=== PATIENT | male | born 1950 | race Caucasian/White ===

== ENCOUNTER 2020-05-26 03:14 | Emergency (ER) | payer MEDICARE, BC ==
[2020-05-26] MEDS ORDERED: Orphenadrine 100 MG Tab.ER PO STA (04:10)
--- NOTE | 2020-05-26 04:31 | EDM.PDOC ---
ED HPI GENERAL MEDICAL PROBLEM - General Chief Complaint: Back Pain or Injury Stated Complaint: FELL/LEFT SIDE & BACK Time Seen by Provider: 05/26/20 03:30 Source of Information: Reports: Patient History Limitations: Reports: No Limitations - History of Present Illness INITIAL COMMENTS - FREE TEXT/NARRATIVE: Mr. Sierra is a very pleasant 69-year-old gentleman who now presents the ED with lower left back pain. He states that he initially developed lower back pain before Thanksgiving, after cleaning out a dog area. He saw his PCP on 05/04/2020, where blood work was checked, and found to be normal. He was told to take Advil or Excedrin, but he was not given any prescriptions or recommendations for activity. His back pain persisted, then he tripped and nearly fell about 5 days ago, on 05/21/2020. This caused his lower back pain to get even worse. Ordinarily, his lower back pain is worse if he remains still and improves with men, however, over the past day or two it has gotten worse with movement, is what prompted him to come to the ED tonight. He states that on occasion he will have pain radiating down his anterior left thigh as far as his knee. No weakness to the left lower extremity. No incontinence of bowel or bladder. The patient states that he been taking extra strength Excedrin, which has not not been helping. Here in the ED, the patient's initial BP is found to be elevated at 176/94, otherwise, he is hemodynamically stable, afebrile, saturating 98% on room air. Other than his lower back pain, the patient denies having a recent fever, chills, sore throat, ear pain, nasal or sinus congestion, cough, dyspnea, chest pain, palpitations, nausea, vomiting, constipation, diarrhea, abdominal pain, urinary symptoms, recent weight gain or weight loss, recent bloody bowel movements or black bowel movements, recent joint aches, headaches, or rashes. The patient's PCP is Dr. Arpita Jean Baptiste. He already received an influenza vaccine this season. Left Lower Back Pain Score (Numeric/FACES): 10 - Related Data Allergies Allergy/AdvReac Type Severity Reaction Status Date / Time clams Allergy Vomiting Verified 05/26/20 03:32 oxycodone Allergy Other Verified 12/24/20 03:32 Home Meds: Home Meds Orphenadrine [Norflex] 1 tab PO Q12H PRN #14 tab.er 05/26/20 [Rx] Past Medical History Gastrointestinal History: Reports: Diverticulosis - Infectious Disease History Infectious Disease History: Reports: Chicken Pox, Measles, Mumps - Past Surgical History HEENT Surgical History: Reports: Oral Surgery (Dentures) Dermatological Surgical History: Reports: Other (See Below) (Lipoma excised from left shoulder) Social & Family History - Tobacco Use Tobacco Use Status *Q: Former Tobacco User Years of Tobacco use: 17 Packs/Tins Daily: 1 Month/Year Tobacco Last Used: Quit 1984 - Caffeine Use Caffeine Use: Reports: Coffee, Tea - Alcohol Use Alcohol Use History: No - Recreational Drug Use Recreational Drug Use: No - Living Situation & Occupation Living situation: Reports: , with Spouse Occupation: Retired ED ROS GENERAL - Review of Systems Review Of Systems: Comprehensive ROS is negative, except as noted in HPI. ED EXAM,LOWER BACK PAIN/INJURY - Physical Exam Exam: See Below Exam Limited By: No Limitations General Appearance: Alert, WD/WN, No Apparent Distress Back Exam: Other (No visible abnormality to the patient's back, such as swelling, erythema, ecchymosis, or abrasion. No tenderness to palpation of the lumbar spinous processes. No tenderness to palpation of the left or right SI joints. No tenderness to palpation of the lower left back, where the patient identifies his pain. The patient is able to flex the spine to 90 degrees, but is not able to extend the spine beyond 0 degrees. He is able to tilt his spine to the right to 30 degrees, but not to the left beyond 0 degrees. He is able to twist his spine bilaterally to 15 degrees. Unilateral knee bend is normal bilaterally. Straight leg raise to 90 degrees on the right, to 70 degrees on the left, limited by tension in his posterior thigh. Neurovascular status of both lower extremities is intact.) Course - Vital Signs Last Recorded V/S: Last Vital Signs Temp 36.3 C 05/26/20 03:28 Pulse 70 05/26/20 03:28 Resp 18 05/26/20 03:28 BP 176/94 H 05/26/20 03:28 Pulse Ox 98 05/26/20 03:28 - Orders/Labs/Meds Meds: Medications Discontinued Medications Generic Name Dose Route Start Last Admin Trade Name Selene PRN Reason Stop Dose Admin Orphenadrine Citrate 100 mg 05/26/20 04:10 05/26/20 04:18 Norflex PO 05/26/20 04:11 100 mg ONETIME STA Administration - Re-Assessments/Exams Free Text/Narrative Re-Assessment/Exam: 05/26/20 04:23 Based on his history and physical examination, the patient's lower left back pain is most likely due to a muscle spasm, although it could be due to lumbar radiculopathy. For today's purposes, the patient will be started on oral Norflex, and I will prescribe a 2-week course. I would like him to take [id number] ibuprofen, in addition. He is to stay active - swimming is best, but if that is not possible, walking is good, as well. I would also like him to begin to stretch his lower back to increase overall range of motion. If his symptoms have continued into next week, I suggested he contact our physical therapy department to see if trigger point injections might be available. If his symptoms continue to persist, he needs to follow-up with his PCP to discuss getting an MRI of his lower back. If his symptoms worsen, he needs to return to the ED for reevaluation. Departure - Departure Time of Disposition: 04:25 Disposition: Home, Self-Care 01 Condition: Good Clinical Impression: Lower back pain - Discharge Information *PRESCRIPTION DRUG MONITORING PROGRAM REVIEWED*: Not Applicable *COPY OF PRESCRIPTION DRUG MONITORING REPORT IN PATIENT BILLIE: Not Applicable Referrals: Arpita Jean Baptiste MD [Primary Care Provider] - Additional Instructions: You were seen in the emergency room for progressively worsening lower left back pain. Based on your history and physical examination, your back pain is most likely due to a muscle spasm, however, it is also possible that it is due to an irritated lower spinal nerve. You have been started on the muscle relaxant Norflex, and a prescription for Norflex has been sent to the [facility], located at [address] [place] [address]. The pharmacy will be open between 9 AM and 3 PM today. Take 1 tablet of Norflex every 12 hours, starting this evening, , 05/26/2020, as prescribed. Norflex works well with ibuprofen. We recommend that you take axty-sln-lwbccna ibuprofen, 3 tablets (600 mg) up to every 8 hours, with food, as needed for discomfort. To protect your stomach, consider also taking qzzo-fka-lxfywlr famotidine (Pepcid), 1 tablet either once or twice a day, as long as you are taking ibuprofen. As discussed, it is very important that you stay active. Swimming is best, but walking is good, as well. As discussed, we also recommend that you begin stretching of your lower back, to maintain symmetric range of motion. Start slowly. If you are still having lower back discomfort by next week, we recommend that you contact the physical therapy department to see if you can make an appointment to undergo trigger point injections, also known as dry needling. If your symptoms persist despite these treatments, we recommend that you follow- up with your PCP, Dr. Arpita Jean Baptiste, to discuss getting an MRI of your lower spine. If your symptoms worsen, in particular, if you develop weakness to your left lower extremity, or incontinence of bowel or bladder, please return to the ER immediately for reevaluation. Sepsis Event Note (ED) - Evaluation Sepsis Screening Result: No Definite Risk - Focused Exam Vital Signs: Vital Signs Temp Pulse Resp BP Pulse Ox 05/26/20 03:28 36.3 C 70 18 176/94 H 98
== END 2020-05-26 04:38 | disposition home or self-care (01) ==
LOC: JD.ED 03:14
DX: M54.5 Low back pain (principal); Z91.018 Allergy to other foods; Z87.891 Personal history of nicotine dependence; Z88.5 Allergy status to narcotic agent
CPT/HCPCS: 99283; A9270